=== PATIENT | female | born 1935 | race Caucasian/White ===

== ENCOUNTER 2017-10-10 10:02 | Observation (INO) | payer BC ==
[2017-10-09 12:09] LABS: BASOPHILS # (AUTO) 0.1 X10'3 (0-0.2); BASOPHILS % (AUTO) 0.4 % (0-1); EOSINOPHILS # (AUTO) 0.2 X10'3 (0-0.9); EOSINOPHILS % (AUTO) 1.6 % (0-6); LYMPHOCYTES # (AUTO) 1.6 X10'3 (1.1-4.8); MEAN CORPUSCULAR HEMOGLOBIN 29.2 PG (27.0-31.0); MEAN CORPUSCULAR HGB CONC 33.3 % (33.0-36.5); MEAN CORPUSCULAR VOLUME 87.7 FL (78-98); MEAN PLATELET VOLUME 9.9 FL (7.4-10.4); MONOCYTES # (AUTO) 0.8 X10'3 (0-0.9); MONOCYTES % (AUTO) 6.1 % (2-12); NEUTROPHILS # (AUTO) 10.5 X10'3 (1.8-7.7); NEUTROPHILS % (AUTO) 79.9 % (42-75); PRE OP HEMATOCRIT 47.9 % (35.0-45.0); PRE OP HEMOGLOBIN 15.9 g/dL (12.0-16.0); PRE OP PLATELET COUNT 234 X10'3 (140-440); RED BLOOD COUNT 5.46 X10'6 (4.20-5.60); RED CELL DISTRIBUTION WIDTH 15.6 % (11.5-14.5)
[2017-10-09 12:19] LABS: PRE OP PROTIME 10.3 SECONDS (9.0-12.0)
[2017-10-09 12:20] LABS: HEMOGLOBIN A1C 6.3 % (4.5-6.2)
[2017-10-09 12:21] LABS: CLARITY,URINE Clear (Clear); COLOR,URINE Yellow (Yellow); GLUCOSE, URINE Negative (Neg); KETONES,URINE Negative (Neg); LEUKOCYTE ESTERASE ,URINE Negative (Neg); NITRITES, URINE Negative (Neg); OCCULT BLOOD,URINE Negative (Neg); PH,URINE 6.5 (4.8-8.0); PROTEIN,URINE Negative (Neg); UROBILINOGEN,URINE 0.2 E.U/dL (0.2-1.0)
[2017-10-09 12:23] LABS: UA COLLECTION TYPE CLN CATCH MIDSTREAM
[2017-10-09 12:32] LABS: ALBUMIN 3.5 G/DL (3.4-5.0); ALBUMIN/GLOBULIN RATIO 0.8 (1.1-1.5); ALKALINE PHOSPHATASE 91 IU/L (46-116); BLOOD UREA NITROGEN 20 MG/DL (7-18); BUN/CREATININE RATIO 16.8 (6.6-38.0); CALCIUM 9.2 MG/DL (8.5-10.1); CHLORIDE 102 MMOL/L (99-107); CREATININE 1.19 MG/DL (0.40-0.90); PRE OP ALT 16 U/L (30-65); PRE OP ANION GAP 9 (8-16); PRE OP AST 13 U/L (10-37); PRE OP BILIRUB, TOTAL 0.3 MG/DL (0.0-1.0); PRE OP GLUCOSE 81 MG/DL (70-104); PRE OP POTASSIUM 4.1 MMOL/L (3.4-5.1); PRE OP SODIUM 141 MMOL/L (135-145); TOTAL CARBON DIOXIDE 29.9 MMOL/L (24-32); TOTAL PROTEIN 7.7 G/DL (6.4-8.2); eGFR 44 ML/MIN
[~2017-10-10] VITALS: Ht 165.1 cm; Wt 124.3 kg
[2017-10-10] VITALS (20 sets, daily range): BP systolic 97–141; BP diastolic 55–91
[~2017-10-10 10:02] MED LIST: ALLO100T PO; APIX5TAB3 PO; CHOL10002 PO; DILT180C49 PO; FURO40TA4 PO; LEVO175T37 PO; MORP15TA PO; MORP60TA66 PO; ROPI0.5T2 PO; albuterol 2.5 MG/3 ML nebule NEB ONE; ceFOXitin 2 GM ADDvantage bag 100 ML IV ONE; famotidine 20mg tablet PO ONE; ringers solution, lacted 1,000 ML IV SCH
[2017-10-10] MEDS ORDERED: LIDOcaine 1% (10mg/ml) 2ml vial ONE (10:32)
[2017-10-10] MEDS ORDERED: ROPIVAcaine 0.5% (5mg/ml) 30ml vial ONE (12:35)
[2017-10-10] MEDS ORDERED: ceFAZolin 1000mg inj ONE (12:35)
[2017-10-10] MEDS ORDERED: sevoflurane 250ml liquid IH ONE (12:58)
[2017-10-10] MEDS ORDERED: fentaNYL/PF 50MCG/1 ML 2ML syringe ONE (13:02)
[2017-10-10] MEDS ORDERED: HYDROcodone/acetaminophen 10/325mg tab PO PRN (13:05)
[2017-10-10] MEDS ORDERED: ondansetron/PF 4mg/2ml inj IV PRN ×2 (13:05→13:40)
[2017-10-10] MEDS: potassium CL 20mEq in D5-1/2NS 1,000 ML IV SCH ×2 (13:05→21:57)
[2017-10-10] MEDS ORDERED: propofol inj 20 ML IV ONE (13:06)
[2017-10-10] MEDS ORDERED: rocuronium 10mg/ml inj IV ONE (13:06)
[2017-10-10] MEDS ORDERED: ringers solution, lacted 1,000 ML IV SCH (13:38)
[2017-10-10] MEDS ORDERED: meperidine/PF 25mg/ml syringe IV PRN ×2 (13:40)
[2017-10-10] MEDS ORDERED: albuterol 2.5 MG/3 ML nebule NEB ONE (13:40)
[2017-10-10] MEDS ORDERED: proCHLORperazine 10 MG/2 ml inj IV PRN (13:40)
[2017-10-10] MEDS ORDERED: labetalol 20mg/4ml (5mg/ml) syringe IV PRN (13:40)
[2017-10-10] MEDS ORDERED: morphine 4 MG/ML inj SYRINge IV PRN ×2 (13:40)
[2017-10-10] MEDS ORDERED: glycopyrrolate 0.2mg/ml inj ONE (14:16)
[2017-10-10] MEDS ORDERED: neostigmine methylsulfate 1 MG/ML 10ml vial ONE (14:16)
[2017-10-10] MEDS: meperidine/PF 25mg/ml syringe IV PRN ×2 (14:48→15:05)
[2017-10-10] MEDS ORDERED: morphine 10mg/0.5ml (conc. morphine) oral syringe PO PRN (15:05)
[2017-10-10] MEDS ORDERED: MORP30TA PO (16:18)
[2017-10-10] MEDS: morphine IR (immed. release) 30mg tablet PO PRN (19:12)
[2017-10-10] MEDS ORDERED: enoxaparin 40mg/0.4ml syringe SQ ONE (20:00)
[2017-10-10] MEDS ORDERED: morphine ER 30mg tablet PO SCH (21:00)
[2017-10-10] MEDS ORDERED: ROPINIRole 0.25mg tablet PO SCH (21:00)
[2017-10-11] VITALS: BP 123/75
[2017-10-11] MEDS: potassium CL 20mEq in D5-1/2NS 1,000 ML IV SCH ×2 (04:55→13:00)
[2017-10-11 08:00] VITALS: BP 119/67
[2017-10-11] MEDS ORDERED: vitamin D (cholecalciferol) 1,000 unit tablet PO SCH (08:00)
[2017-10-11] MEDS ORDERED: apixaban 5mg tablet PO SCH (08:00)
[2017-10-11] MEDS ORDERED: enoxaparin 40mg/0.4ml syringe SQ SCH (08:00)
[2017-10-11] MEDS ORDERED: diltiazem CD 180mg cap (once-daily) PO SCH (08:00)
[2017-10-11] MEDS ORDERED: furosemide 40mg tablet PO SCH (08:00)
[2017-10-11] MEDS ORDERED: allopurinol 100mg tablet PO SCH (08:00)
[2017-10-11] MEDS ORDERED: levoTHYROXINE 175mcg tablet PO SCH (08:00)
[2017-10-11] MEDS: morphine IR (immed. release) 30mg tablet PO PRN (11:31)
[2017-10-11 11:45] VITALS: BP 118/68
[2017-10-19] MEDS ORDERED: LEVO500T2 IV (15:37)
[2017-10-19] MEDS ORDERED: LACT1CAP65 PO (15:37)
[2017-10-19] MEDS ORDERED: METR500T PO (15:39)
== END 2017-10-11 16:21 | disposition home or self-care (01) ==
LOC: PAS 10:02 → SUR 3N 10:03 → UNDOADMOB 13:05 → SUR 3N 15:15 → UNDOADMOB 15:15 → PAS 15:15 → SUR 3N 15:15
PROVIDERS: ADMIT Surgery; ATTEND Surgery
DX: K80.10 Calculus of gallbladder with chronic cholecystitis without obstruction (principal); I10 Essential (primary) hypertension; E66.01 Morbid (severe) obesity due to excess calories; Z68.41 Body mass index [BMI] 40.0-44.9, adult; Z87.891 Personal history of nicotine dependence
CPT/HCPCS: 36415; 47562; 71046; 80053; 81003; 83036; 84443; 85025; 85610; 85730; 93005; 96372; 96374; 96375; A6449; G0378; J0690; J0694; J1650; J2175; J2405; J2704; J2710; J2795; J3010; J3490; J7120; A7000

== ENCOUNTER 2017-10-14 08:01 | Inpatient (IN) | payer BC ==
[~2017-10-14] VITALS: Ht 165.1 cm; Wt 122.7 kg
[2017-10-14] VITALS (21 sets, daily range): BP systolic 92–150; BP diastolic 40–94
[~2017-10-14 08:01] MED LIST changes: -MORP15TA PO; +MORP30TA PO; -albuterol 2.5 MG/3 ML nebule NEB ONE; -ceFOXitin 2 GM ADDvantage bag 100 ML IV ONE; -famotidine 20mg tablet PO ONE; -ringers solution, lacted 1,000 ML IV SCH
[2017-10-14] MEDS ORDERED: ondansetron/PF 4mg/2ml inj IV ONE (09:10)
[2017-10-14] MEDS ORDERED: morphine 4 MG/ML inj SYRINge IV ONE (09:10)
[2017-10-14] MEDS ORDERED: normal saline 1000ML IV soln IVB ONE (09:10)
[2017-10-14] MEDS ORDERED: famotidine/PF 10 mg/ml inj IV ONE (09:10)
[2017-10-14 10:51] LABS: CLARITY,URINE SLIGHTLY CLOUDY (Clear); COLOR,URINE YELLOW (Yellow); GLUCOSE, URINE NEGATIVE (Neg); KETONES,URINE NEGATIVE (Neg); LEUKOCYTE ESTERASE ,URINE TRACE (Neg); NITRITES, URINE NEGATIVE (Neg); OCCULT BLOOD,URINE MODERATE (Neg); PH,URINE 5.5 (4.8-8.0); PROTEIN,URINE NEGATIVE (Neg); UROBILINOGEN,URINE 0.2 E.U/dL (0.2-1.0)
[2017-10-14 10:52] LABS: UA COLLECTION TYPE STRAIGHT CATH
[2017-10-14 10:54] LABS: BASOPHILS % (AUTO) 0.1 % (0-1); EOSINOPHILS % (AUTO) 0.3 % (0-6); HEMATOCRIT 51.6 % (35.0-45.0); LYMPHOCYTES # (AUTO) 0.6 X10'3 (1.1-4.8); LYMPHOCYTES % (AUTO) 3.6 % (21-51); MEAN CORPUSCULAR HEMOGLOBIN 28.7 PG (27.0-31.0); MEAN CORPUSCULAR HGB CONC 32.9 % (33.0-36.5); MEAN CORPUSCULAR VOLUME 87.1 FL (78-98); MEAN PLATELET VOLUME 9.9 FL (7.4-10.4); MONOCYTES # (AUTO) 1.2 X10'3 (0-0.9); MONOCYTES % (AUTO) 7.4 % (2-12); NEUTROPHILS # (AUTO) 14.4 X10'3 (1.8-7.7); NEUTROPHILS % (AUTO) 88.6 % (42-75); PLATELET COUNT 295 X10'3 (140-440); RED BLOOD COUNT 5.92 X10'6 (4.20-5.60); RED CELL DISTRIBUTION WIDTH 14.6 % (11.5-14.5); WHITE BLOOD COUNT 16.3 X10'3 (4.5-11.0)
[2017-10-14 11:03] LABS: BACTERIA,URINE 4+ /HPF (Neg); MUCUS STRANDS NONE SEEN /LPF (Neg); SQUAMOUS EPITHELIAL CELL,UR MANY /LPF (FEW); WBC CLUMPS,URINE FEW /HPF (NEGATIVE)
[2017-10-14 11:10] LABS: ALANINE AMINOTRANSFERASE 26 U/L (12-78); ALBUMIN 2.9 G/DL (3.4-5.0); ALBUMIN/GLOBULIN RATIO 0.7 (1.1-1.5); ALKALINE PHOSPHATASE 86 IU/L (46-116); ANION GAP 9 (8-16); ASPARTATE AMINO TRANSFERASE 18 U/L (10-37); BILIRUBIN,TOTAL 0.8 MG/DL (0.1-1.0); BLOOD UREA NITROGEN 28 MG/DL (7-18); BUN/CREATININE RATIO 23.1 (6.6-38.0); CALCIUM 9.3 MG/DL (8.5-10.1); CHLORIDE 96 MMOL/L (99-107); CREATININE 1.21 MG/DL (0.40-0.90); GLUCOSE 134 MG/DL (70-104); LIPASE 77 U/L (73-393); POTASSIUM 4.1 MMOL/L (3.5-5.1); SODIUM 138 MMOL/L (135-145); TOTAL CARBON DIOXIDE 33.2 MMOL/L (24-32); TOTAL PROTEIN 7.2 G/DL (6.4-8.2); eGFR 43 ML/MIN
[2017-10-14] MEDS ORDERED: magnesium hydroxide 30ml (MOM) UD suspension PO PRN (11:45)
[2017-10-14] MEDS ORDERED: morphine 4 MG/ML inj SYRINge IV PRN ×2 (11:45→16:30)
[2017-10-14] MEDS ORDERED: mag hydrox/Alum hydrox/simeth 30ml oral suspension PO PRN (11:45)
[2017-10-14] MEDS ORDERED: acetaminophen 325mg tablet PO PRN ×2 (11:45)
[2017-10-14] MEDS ORDERED: BUPIVAcaine/PF 7.5mg/ml (0.75%) 10ml vial ONE (11:47)
[2017-10-14] MEDS ORDERED: morphine IR (immed. release) 30mg tablet PO PRN (11:50)
[2017-10-14] MEDS ORDERED: diltiazem CD 180mg cap (once-daily) PO ONE (12:05)
[2017-10-14] MEDS ORDERED: bacitracin 15gm ointment TP ONE (12:08)
[2017-10-14] MEDS: piperacillin/tazo 4.5gm/100ml 100 ML IV SCH ×3 (12:31→23:00)
[2017-10-14] MEDS: normal saline 1000ml 1,000 ML IV SCH ×2 (12:31→21:55)
[2017-10-14] MEDS: morphine 4 MG/ML inj SYRINge IV PRN ×3 (14:09→17:00)
[2017-10-14] MEDS ORDERED: diltiazem 5mg/ml 5ml inj. IV ONE (14:20)
[2017-10-14] MEDS: ondansetron/PF 4mg/2ml inj IV PRN ×2 (14:34→22:58)
[2017-10-14] MEDS ORDERED: sevoflurane 250ml liquid IH ONE (15:01)
[2017-10-14] MEDS ORDERED: fentaNYL/PF 50MCG/1 ML 2ML syringe ONE (15:06)
[2017-10-14] MEDS ORDERED: rocuronium 10mg/ml inj IV ONE (15:48)
[2017-10-14] MEDS ORDERED: propofol inj 20 ML IV ONE (15:48)
[2017-10-14] MEDS ORDERED: ceFOXitin 1000 MG inj ONE ×2 (15:48)
[2017-10-14] MEDS ORDERED: metoprolol tartrate 1mg/ml inj IV ONE (15:48)
[2017-10-14] MEDS ORDERED: piperacillin/tazo 4.5gm/100ml 100 ML IV SCH ×2 (16:00→20:00)
[2017-10-14] MEDS: ceFAZolin 1000mg inj ONE ×2 (16:17→16:18)
[2017-10-14] MEDS ORDERED: glycopyrrolate 0.2mg/ml inj ONE (16:20)
[2017-10-14] MEDS ORDERED: neostigmine methylsulfate 1 MG/ML 10ml vial ONE (16:20)
[2017-10-14] MEDS ORDERED: ringers solution, lacted 1,000 ML IV SCH (16:27)
[2017-10-14] MEDS ORDERED: proCHLORperazine 10 MG/2 ml inj IV PRN (16:30)
[2017-10-14] MEDS ORDERED: meperidine/PF 25mg/ml syringe IV PRN ×2 (16:30)
[2017-10-14] MEDS ORDERED: ondansetron/PF 4mg/2ml inj IV PRN (16:30)
[2017-10-14] MEDS ORDERED: meperidine/PF 25mg/ml syringe ONE (16:31)
[2017-10-14] MEDS: meperidine/PF 25mg/ml syringe IV PRN ×3 (17:05→17:41)
[2017-10-14] MEDS ORDERED: ketorolac trometh. 30mg/ml inj. IV ONE (17:05)
[2017-10-14] MEDS ORDERED: acetaminophen 1,000mg/100ml IV 100 ML IV ONE (17:05)
[2017-10-14] MEDS: diltiazem-NS 100mg/100ml 100 ML IV SCH ×2 (20:54→23:15)
[2017-10-14] MEDS ORDERED: temazepam 15mg capsule PO PRN (21:00)
[2017-10-14] MEDS ORDERED: normal saline 1000ml 1,000 ML IV ONE (21:25)
[2017-10-14] MEDS: morphine ER 30mg tablet PO SCH (22:22)
[2017-10-14] MEDS: ROPINIRole 0.25mg tablet PO SCH (22:59)
[2017-10-15] VITALS (14 sets, daily range): BP systolic 108–148; BP diastolic 60–103
[2017-10-15 06:50] LABS: BASOPHILS % (AUTO) 0 % (0-1); EOSINOPHILS # (AUTO) 0.3 X10'3 (0-0.9); HEMATOCRIT 44.6 % (35.0-45.0); LYMPHOCYTES # (AUTO) 0.5 X10'3 (1.1-4.8); LYMPHOCYTES % (AUTO) 3.6 % (21-51); MEAN CORPUSCULAR HEMOGLOBIN 29.2 PG (27.0-31.0); MEAN CORPUSCULAR HGB CONC 33.6 % (33.0-36.5); MEAN PLATELET VOLUME 10.1 FL (7.4-10.4); MONOCYTES # (AUTO) 0.9 X10'3 (0-0.9); NEUTROPHILS # (AUTO) 10.9 X10'3 (1.8-7.7); NEUTROPHILS % (AUTO) 87.4 % (42-75); PLATELET COUNT 238 X10'3 (140-440); RED BLOOD COUNT 5.13 X10'6 (4.20-5.60); WHITE BLOOD COUNT 12.5 X10'3 (4.5-11.0)
[2017-10-15 07:01] LABS: ALBUMIN 2.4 G/DL (3.4-5.0); ANION GAP 8 (8-16); BLOOD UREA NITROGEN 30 MG/DL (7-18); CALCIUM 8.7 MG/DL (8.5-10.1); CHLORIDE 98 MMOL/L (99-107); CREATININE 1.25 MG/DL (0.40-0.90); GLUCOSE 128 MG/DL (70-104); POTASSIUM 3.9 MMOL/L (3.5-5.1); SODIUM 134 MMOL/L (135-145); TOTAL CARBON DIOXIDE 27.7 MMOL/L (24-32); eGFR 41 ML/MIN
[2017-10-15] MEDS: normal saline 1000ml 1,000 ML IV SCH ×2 (07:16→16:57)
[2017-10-15] MEDS: LEVOXYL 175 MCG PO SCH (07:16)
[2017-10-15] MEDS: piperacillin/tazo 4.5gm/100ml 100 ML IV SCH ×2 (07:16→14:15)
[2017-10-15] MEDS: furosemide 40mg tablet PO SCH (07:17)
[2017-10-15] MEDS: diltiazem CD 180mg cap (once-daily) PO SCH ×2 (07:17→08:00)
[2017-10-15] MEDS: vitamin D (cholecalciferol) 1,000 unit tablet PO SCH (07:17)
[2017-10-15] MEDS: allopurinol 100mg tablet PO SCH (07:18)
[2017-10-15] MEDS ORDERED: levoTHYROXINE 175mcg tablet PO SCH (08:00)
[2017-10-15] MEDS: morphine 4 MG/ML inj SYRINge IV PRN ×4 (08:24→22:33)
[2017-10-15] MEDS ORDERED: diltiazem 30mg tablet PO ONE (08:55)
[2017-10-15] MEDS: DILTIAZEM 180 MG PO SCH (09:49)
[2017-10-15] MEDS: ondansetron/PF 4mg/2ml inj IV PRN ×2 (11:21→18:27)
[2017-10-15] MEDS: metoclopramide 5 mg/ml inj IV PRN ×2 (13:26→21:16)
[2017-10-15] MEDS: diltiazem-NS 100mg/100ml 100 ML IV SCH (13:32)
[2017-10-15] MEDS: lactobacillus rhamnosus 10,000 MMU CELLS/CAPSULE PO SCH (20:00)
[2017-10-15] MEDS: ROPINIRole 0.25mg tablet PO SCH (21:00)
[2017-10-15] MEDS: morphine ER 30mg tablet PO SCH (21:00)
[2017-10-16] VITALS (8 sets, daily range): BP systolic 112–144; BP diastolic 59–83
[2017-10-16] MEDS: piperacillin/tazo 4.5gm/100ml 100 ML IV SCH ×4 (00:29→23:13)
[2017-10-16] MEDS: morphine 4 MG/ML inj SYRINge IV PRN (01:06)
[2017-10-16 03:27] LABS: BASOPHILS % (AUTO) 0 % (0-1); EOSINOPHILS # (AUTO) 0.1 X10'3 (0-0.9); EOSINOPHILS % (AUTO) 0.5 % (0-6); HEMOGLOBIN 15.3 g/dl (12.0-16.0); LYMPHOCYTES # (AUTO) 0.4 X10'3 (1.1-4.8); LYMPHOCYTES % (AUTO) 3.1 % (21-51); MEAN CORPUSCULAR HEMOGLOBIN 29.2 PG (27.0-31.0); MEAN CORPUSCULAR HGB CONC 33.4 % (33.0-36.5); MEAN CORPUSCULAR VOLUME 87.6 FL (78-98); MEAN PLATELET VOLUME 9.6 FL (7.4-10.4); MONOCYTES % (AUTO) 7.2 % (2-12); NEUTROPHILS # (AUTO) 12.2 X10'3 (1.8-7.7); NEUTROPHILS % (AUTO) 89.2 % (42-75); PLATELET COUNT 268 X10'3 (140-440); RED BLOOD COUNT 5.25 X10'6 (4.20-5.60); RED CELL DISTRIBUTION WIDTH 14.4 % (11.5-14.5); WHITE BLOOD COUNT 13.7 X10'3 (4.5-11.0)
[2017-10-16 03:40] LABS: ALBUMIN 2.4 G/DL (3.4-5.0); ANION GAP 6 (8-16); BLOOD UREA NITROGEN 23 MG/DL (7-18); BUN/CREATININE RATIO 23.2 (6.6-38.0); CALCIUM 8.7 MG/DL (8.5-10.1); CHLORIDE 97 MMOL/L (99-107); CREATININE 0.99 MG/DL (0.40-0.90); GLUCOSE 127 MG/DL (70-104); POTASSIUM 3.2 MMOL/L (3.5-5.1); SODIUM 136 MMOL/L (135-145); TOTAL CARBON DIOXIDE 33.5 MMOL/L (24-32); TROPONIN I < 0.04 NG/ML (0.0-0.05); eGFR 54 ML/MIN
[2017-10-16] MEDS: normal saline 1000ml 1,000 ML IV SCH ×3 (03:44→23:05)
[2017-10-16] MEDS ORDERED: potassium Cl 40MEQ/NS 500ml 500 ML IV PRN ×2 (06:55)
[2017-10-16] MEDS ORDERED: magnesium/D5W IVPB 100 ML IV PRN (06:55)
[2017-10-16] MEDS ORDERED: magnesium Cl slow-release 64mg tablet PO PRN (06:55)
[2017-10-16] MEDS ORDERED: potassium Cl 20 mEq SR tablet PO PRN (06:55)
[2017-10-16] MEDS ORDERED: magnesium 4gm in 100ml NS 100 ML IV PRN (06:55)
[2017-10-16] MEDS: allopurinol 100mg tablet PO SCH (07:11)
[2017-10-16] MEDS: lactobacillus rhamnosus 10,000 MMU CELLS/CAPSULE PO SCH ×2 (07:11→20:20)
[2017-10-16] MEDS: DILTIAZEM 180 MG PO SCH (07:11)
[2017-10-16] MEDS: LEVOXYL 175 MCG PO SCH (07:11)
[2017-10-16] MEDS: vitamin D (cholecalciferol) 1,000 unit tablet PO SCH (07:11)
[2017-10-16] MEDS: furosemide 40mg tablet PO SCH (07:11)
[2017-10-16] MEDS: potassium Cl 20 mEq SR tablet PO PRN ×3 (07:16→20:20)
[2017-10-16] MEDS: diltiazem 30mg tablet PO PRN ×2 (11:00→19:53)
[2017-10-16] MEDS: HYDROcodone/acetaminophen 10/325mg tab PO PRN (14:56)
[2017-10-16] MEDS: ROPINIRole 0.25mg tablet PO SCH ×2 (20:20→21:00)
[2017-10-16] MEDS: morphine ER 30mg tablet PO SCH (20:20)
[2017-10-17] MEDS: ondansetron/PF 4mg/2ml inj IV PRN (01:57)
[2017-10-17 03:00] VITALS: BP 120/64
[2017-10-17 06:04] LABS: BASOPHILS % (AUTO) 0 % (0-1); EOSINOPHILS # (AUTO) 0.1 X10'3 (0-0.9); EOSINOPHILS % (AUTO) 0.6 % (0-6); HEMATOCRIT 45.7 % (35.0-45.0); HEMOGLOBIN 15.3 g/dl (12.0-16.0); LYMPHOCYTES # (AUTO) 0.8 X10'3 (1.1-4.8); LYMPHOCYTES % (AUTO) 5.4 % (21-51); MEAN CORPUSCULAR HEMOGLOBIN 29.1 PG (27.0-31.0); MEAN CORPUSCULAR HGB CONC 33.4 % (33.0-36.5); MEAN CORPUSCULAR VOLUME 87.1 FL (78-98); MEAN PLATELET VOLUME 10.2 FL (7.4-10.4); MONOCYTES % (AUTO) 7.3 % (2-12); NEUTROPHILS # (AUTO) 12.4 X10'3 (1.8-7.7); NEUTROPHILS % (AUTO) 86.7 % (42-75); PLATELET COUNT 312 X10'3 (140-440); RED BLOOD COUNT 5.24 X10'6 (4.20-5.60); RED CELL DISTRIBUTION WIDTH 14.3 % (11.5-14.5); WHITE BLOOD COUNT 14.4 X10'3 (4.5-11.0)
[2017-10-17 07:00] VITALS: BP 134/70
[2017-10-17 07:18] LABS: ALBUMIN 2.4 G/DL (3.4-5.0); ANION GAP 4 (8-16); BLOOD UREA NITROGEN 26 MG/DL (7-18); CALCIUM 9.1 MG/DL (8.5-10.1); CHLORIDE 97 MMOL/L (99-107); CREATININE 1.04 MG/DL (0.40-0.90); GLUCOSE 121 MG/DL (70-104); MAGNESIUM 2.3 MG/DL (1.5-2.4); POTASSIUM 3.1 MMOL/L (3.5-5.1); SODIUM 136 MMOL/L (135-145); TOTAL CARBON DIOXIDE 35.5 MMOL/L (24-32); eGFR 51 ML/MIN
[2017-10-17] MEDS: DILTIAZEM 180 MG PO SCH (07:31)
[2017-10-17] MEDS: lactobacillus rhamnosus 10,000 MMU CELLS/CAPSULE PO SCH ×2 (07:31→20:27)
[2017-10-17] MEDS: allopurinol 100mg tablet PO SCH (07:31)
[2017-10-17] MEDS: LEVOXYL 175 MCG PO SCH (07:31)
[2017-10-17] MEDS: vitamin D (cholecalciferol) 1,000 unit tablet PO SCH (07:31)
[2017-10-17] MEDS: potassium Cl 20 mEq SR tablet PO PRN ×3 (07:31→20:27)
[2017-10-17] MEDS: furosemide 40mg tablet PO SCH (07:31)
[2017-10-17] MEDS: piperacillin/tazo 4.5gm/100ml 100 ML IV SCH (07:33)
[2017-10-17] MEDS: normal saline 1000ml 1,000 ML IV SCH ×2 (09:44→19:10)
[2017-10-17 11:00] VITALS: BP_SYST 126; BP_SYST 147; BP_DIAS 60; BP_DIAS 65
[2017-10-17] MEDS: HYDROcodone/acetaminophen 10/325mg tab PO PRN (13:05)
[2017-10-17 15:00] VITALS: BP 111/63
[2017-10-17 19:00] VITALS: BP 124/67
[2017-10-17] MEDS: morphine ER 30mg tablet PO SCH (20:27)
[2017-10-17] MEDS: ROPINIRole 0.25mg tablet PO SCH (20:27)
[2017-10-17 23:00] VITALS: BP 138/81
[2017-10-18] MEDS: HYDROcodone/acetaminophen 10/325mg tab PO PRN (02:29)
[2017-10-18 03:00] VITALS: BP 125/74
[2017-10-18] MEDS: normal saline 1000ml 1,000 ML IV SCH ×2 (05:44→16:05)
[2017-10-18 06:43] LABS: BASOPHILS % (AUTO) 0.2 % (0-1); EOSINOPHILS # (AUTO) 0.3 X10'3 (0-0.9); EOSINOPHILS % (AUTO) 2.3 % (0-6); HEMOGLOBIN 14.8 g/dl (12.0-16.0); LYMPHOCYTES # (AUTO) 0.9 X10'3 (1.1-4.8); LYMPHOCYTES % (AUTO) 7.2 % (21-51); MEAN CORPUSCULAR HGB CONC 33.7 % (33.0-36.5); MEAN CORPUSCULAR VOLUME 86.2 FL (78-98); MEAN PLATELET VOLUME 9.6 FL (7.4-10.4); MONOCYTES % (AUTO) 8.2 % (2-12); NEUTROPHILS # (AUTO) 10.1 X10'3 (1.8-7.7); NEUTROPHILS % (AUTO) 82.1 % (42-75); PLATELET COUNT 316 X10'3 (140-440); RED BLOOD COUNT 5.11 X10'6 (4.20-5.60); RED CELL DISTRIBUTION WIDTH 14.4 % (11.5-14.5); WHITE BLOOD COUNT 12.3 X10'3 (4.5-11.0)
[2017-10-18 07:00] VITALS: BP 124/69
[2017-10-18 07:00] LABS: ALBUMIN 2.3 G/DL (3.4-5.0); ANION GAP 6 (8-16); BLOOD UREA NITROGEN 19 MG/DL (7-18); BUN/CREATININE RATIO 21.3 (6.6-38.0); CALCIUM 8.6 MG/DL (8.5-10.1); CHLORIDE 99 MMOL/L (99-107); CREATININE 0.89 MG/DL (0.40-0.90); GLUCOSE 99 MG/DL (70-104); POTASSIUM 3.4 MMOL/L (3.5-5.1); SODIUM 140 MMOL/L (135-145); TOTAL CARBON DIOXIDE 34.6 MMOL/L (24-32); eGFR 61 ML/MIN
[2017-10-18] MEDS: LEVOXYL 175 MCG PO SCH (07:19)
[2017-10-18] MEDS ORDERED: levoFLOXACIN-Levaquin 500mg/D5 100 ML IV SCH (08:00)
[2017-10-18] MEDS: potassium Cl 20 mEq SR tablet PO PRN (08:53)
[2017-10-18] MEDS: allopurinol 100mg tablet PO SCH (08:54)
[2017-10-18] MEDS: lactobacillus rhamnosus 10,000 MMU CELLS/CAPSULE PO SCH (08:54)
[2017-10-18] MEDS: vitamin D (cholecalciferol) 1,000 unit tablet PO SCH (08:54)
[2017-10-18] MEDS: furosemide 40mg tablet PO SCH (08:54)
[2017-10-18] MEDS: DILTIAZEM 180 MG PO SCH (08:55)
[2017-10-18 11:00] VITALS: BP 148/90
[2017-10-18] MEDS: HYDROcodone/acetaminophen 5mg/325mg tablet PO PRN ×2 (11:07→15:04)
[2017-10-18 15:00] VITALS: BP 118/79
[2017-10-18] MEDS ORDERED: metroNIDAZOLE-Flagyl 500mg/NS 100 ML IV SCH (20:00)
[2017-10-19] MEDS ORDERED: LEVO500T2 IV (15:37)
[2017-10-19] MEDS ORDERED: LACT1CAP65 PO (15:37)
[2017-10-19] MEDS ORDERED: METR500T PO (15:39)
== END 2017-10-18 17:07 | DRG 354 ==
LOC: ER 08:01 → ED HOLD 11:44 → SUR 3N 19:04 → PCU 3S 20:23
PROVIDERS: ADMIT Hospitalist; ATTEND Family Medicine
PROC: 0WQF4ZZ Repair Abdominal Wall, Percutaneous Endoscopic Approach (ICD-10-PCS; principal; 2017-10-15)
DX: K42.0 Umbilical hernia with obstruction, without gangrene (principal); N39.0 Urinary tract infection, site not specified; Z68.42 Body mass index [BMI] 45.0-49.9, adult; E03.9 Hypothyroidism, unspecified; E86.0 Dehydration; G25.81 Restless legs syndrome; G47.33 Obstructive sleep apnea (adult) (pediatric); G89.4 Chronic pain syndrome; I48.91 Unspecified atrial fibrillation; I12.9 Hypertensive chronic kidney disease with stage 1 through stage 4 chronic kidney disease, or unspecified chronic kidney disease; N18.9 Chronic kidney disease, unspecified; R09.02 Hypoxemia; R73.03 Prediabetes; Z96.619 Presence of unspecified artificial shoulder joint; Z96.641 Presence of right artificial hip joint; E66.01 Morbid (severe) obesity due to excess calories; H26.9 Unspecified cataract; M10.9 Gout, unspecified; M19.90 Unspecified osteoarthritis, unspecified site; M25.569 Pain in unspecified knee; Z82.49 Family history of ischemic heart disease and other diseases of the circulatory system; Z87.891 Personal history of nicotine dependence; Z90.49 Acquired absence of other specified parts of digestive tract; Z88.8 Allergy status to other drugs, medicaments and biological substances; Z91.048 Other nonmedicinal substance allergy status
CPT/HCPCS: 93306; 96361; 96374; 96375; 99285; Z7506; 36415; 74022; 74176; 80048; 80053; 81001; 83690; 83735; 84443; 84484; 85025; 87070; 87077; 87088; 87186; 93005; 97116; 97162; 97530; A4649; A6449; A7000; C1758; J0131; J0690; J0694; J1885; J1956; J2175; J2270; J2405; J2543; J2704; J2710; J2765; J3010; J3490; J7030; J7120